=== PATIENT | female | born 1995 | race Two or more races ===

== ENCOUNTER 2023-08-15 12:23 | Emergency (ER) | payer OTHER ==
[~2023-08-15] VITALS: Ht 160 cm; Wt 58.1 kg
[~2023-08-15 12:23] MED LIST: BICILLIN C1.2 MMU/2 IM; CEFADROXIL250 MG/5 M PO; PREDNISONE5 MG/DOSE- PO
== END 2023-08-15 13:43 | disposition home or self-care (01) ==
LOC: ER 12:24
DX: N39.0 Urinary tract infection, site not specified (principal); F31.89 Other bipolar disorder; E16.1 Other hypoglycemia